=== PATIENT | female | born 1955 | race Caucasian/White ===

== ENCOUNTER → 2018-01-23 | Outpatient (CLI) | payer MEDICARE, OTHER ==
[~2018-01-23] MED LIST: ACIPHEX 20 MG T20 MG PO; ADVIL ALLERGY1 EACH PO; ADVIL CONGESTI1 EACH PO; ALLEGRA ALLERG180 MG PO; ASPIR 8181 M1 PO; ASPIR 8181 MG PO; BENAZEPRIL HCL10 MG PO; BENAZEPRIL-HCT1 EAC2 PO; CALCIUM CITRAT1 EAC9 PO; CELEBREX 200 M200 MG PO; CENTRUM SILVER1 EAC1 PO; CORRECTOL5 M1 PO; DARVOCET-N 1001 EAC1 PO; DESYREL50 MG PO; EFFEXOR XR75 MG PO; FENTANYL PATCH75 MCG TRANSDERM; GINKGO BILOBA1 EACH PO; HAIR, SKIN & N1 EAC1 PO; IMDUR 30 MG TAB30 M1 PO; L-THYROXINE; LAMICTAL100 MG PO; LEVOTHYROXIN0.112 M1 PO; LOPRESSOR25 PO; MAXZIDE-25 MG1 EACH PO; MELOXICAM15 MG PO; METOCLOPRAMIDE10 MG PO; NORCO 10-325 T1 EACH PO; PHENERGAN 25 MG25 M1 PO; PHENERGAN 25 MG25 MG PO; POTASSIUM; PRAVACHOL20 MG PO; PRAVASTATIN SOD10 MG PO; PRILOSEC40 MG PO; SIMVASTATIN40 MG PO; SKELAXIN 800 M800 M1 PO; STOOL SOFTENER1 EAC2 PO; TENORMIN25 MG PO; TESSALON PERLE100 MG PO; TRAZODONE 150150 M1 PO; TRAZODONE HCL100 MG PO; TURMERIC500 M2 PO; TYLENOL PM EX-1 EACH PO; UNICOMPLEX M TA1 TA1 PO; XANAX 0.5 MG0.5 MG PO; ZANAFLEX4 MG PO
--- NOTE | 2018-01-23 13:41 | 2DMMODE ---
[place] [address] 2 D/M-MODE ECHOCARDIOGRAM Name: NISSA WRIGHT Room: [facility]#: [id number] Admission: 01/23/18 Attend Phys: Kar Lester Discharge: Date of : 51 Date of Service: 01/23/18 1341 Report #: [id number] THIS REPORT FOR: //name// APPROVED REPORT Study performed: 01/23/2018 12:57:14 EXAM: Comprehensive 2D, Doppler, and color-flow Echocardiogram Patient Location: Out-Patient BSA: 1.69 HR: 60 bpm BP: 140/75 mmHg Other Information Study Quality: Good Indications Hypertension/HDD 2D Dimensions LVEF(%): 61.35 (>50%) IVSd: 11.74 (7-11mm) LVOT Diam: 20.94 (18-24mm) LVDd: 36.24 mm PWd: 11.07 (7-11mm) Ascending Ao: 27.75 (22-36mm) LVDs: 24.57 (25-40mm) Aortic Root: 29.53 mm Santizo's LVEF: 61.35 % Volumes Left Atrial Volume (Systole) LA ESV Index: 26.40 mL/m2 Aortic Valve AoV Peak Mandeep.: 1.30 m/s AO Peak Gr.: 6.71 mmHg LVOT Max P.95 mmHg AO Mean Gr.: 3.62 mmHg LVOT Mean P.15 mmHg LVOT Max V: 1.11 m/s AO V2 VTI: 28.92 cm LVOT Mean V: 0.67 m/s JOSÉ MIGUEL (VTI): 2.99 cm2 LVOT V1 VTI: 25.10 cm Mitral Valve E/A Ratio: 0.69 MV Decel. Time: 174.04 ms MV E Max Mandeep.: 0.56 m/[place] [address] 2 D/M-MODE ECHOCARDIOGRAM Name: NISSA WRIGHT Room: [facility]#: [id number] Admission: 01/23/18 Attend Phys: Kar Lester Discharge: Date of : 51 Date of Service: 01/23/18 1341 Report #: [id number] MV PHT: 50.47 ms MVA (PHT): 4.36 cm2 TDI E/Lateral E': 6.22 E/Medial E': 4.67 Medial E' Mandeep.: 0.12 m/s Lateral E' Mandeep.: 0.09 m/s Pulmonary Valve PV Peak Mandeep.: 0.87 m/s PV Peak Gr.: 3.01 mmHg Tricuspid Valve TR Peak Gr.: 24.46 mmHg RVSP: 29.46 mmHg Left Ventricle The left ventricle is normal size. There is normal LV segmental wall motion. Mild concentric left ventricular hypertrophy. Left ventricular systolic function is normal. The left ventricular ejection fraction is within the normal range. LVEF is 60-65%. Grade I - abnormal relaxation pattern. Right Ventricle The right ventricle is normal size. The right ventricular systolic function is normal. Atria The left atrium size is normal. The right atrium size is normal.There is a small heavily calcified relatively immobile structure in the right atrium, uncertain etiology Aortic Valve Mild aortic valve sclerosis. No aortic regurgitation is present. There is no aortic valvular stenosis. Mitral Valve The mitral valve is normal in structure. Mild mitral regurgitation. No evidence of mitral valve stenosis. Tricuspid Valve The tricuspid valve is normal in structure. Mild tricuspid regurgitation. The RVSP is __29.5 mmHg. Pulmonic Valve The pulmonary valve is normal in structure. [place] [address] 2 D/M-MODE ECHOCARDIOGRAM Name: NISSA WRIGHT Room: [facility]#: [id number] Admission: 01/23/18 Attend Phys: Kar Lester Discharge: Date of : 51 Date of Service: 01/23/18 1341 Report #: [id number] Great Vessels The aortic root is normal in size. IVC is normal in size and collapses with >50% inspiration Pericardium There is no pericardial effusion. <Conclusion> The left ventricle is normal size. Left ventricular systolic function is normal. The left ventricular ejection fraction is within the normal range. LVEF is 60-65%. Grade I - abnormal relaxation pattern. The right ventricle is normal size. The left atrium size is normal. The right atrium size is normal.There is a small heavily calcified relatively immobile structure in the right atrium, uncertain etiology Mild aortic valve sclerosis. No aortic regurgitation is present. The mitral valve is normal in structure. Mild mitral regurgitation. The tricuspid valve is normal in structure. Mild tricuspid regurgitation. The RVSP is __29.5 mmHg. IVC is normal in size and collapses with >50% inspiration There is no pericardial effusion. There is normal LV segmental wall motion. <ELECTRONICALLY SIGNED> By: Dewey Felipe MD, FACC 01/23/18 1341 1341 1341 Dewey Felipe MD, FACC /INF
== END ==
LOC: M.CRD 10:00
DX: I10 Essential (primary) hypertension (principal); I08.1 Rheumatic disorders of both mitral and tricuspid valves

== ENCOUNTER → 2018-03-27 | Outpatient (CLI) | payer MEDICARE, OTHER | LOC: M.RAD 14:10 | DX: M47.894 Other spondylosis, thoracic region (principal); M47.892 Other spondylosis, cervical region; M25.551 Pain in right hip; M25.552 Pain in left hip; I10 Essential (primary) hypertension ==

== ENCOUNTER 2018-04-28 12:04 | Inpatient (IN) | payer MEDICARE, OTHER ==
[~2018-04-28] VITALS: Ht 167.6 cm; Wt 62.6 kg
[~2018-04-28 12:04] MED LIST changes: -ADVIL ALLERGY1 EACH PO; -ALLEGRA ALLERG180 MG PO; -ASPIR 8181 MG PO; -BENAZEPRIL HCL10 MG PO; -CELEBREX 200 M200 MG PO; -HAIR, SKIN & N1 EAC1 PO; -LOPRESSOR25 PO; -PRAVACHOL20 MG PO; -TRAZODONE 150150 M1 PO; -TURMERIC500 M2 PO; -UNICOMPLEX M TA1 TA1 PO
[2018-04-28 12:06] VITALS: BP 111/63
[2018-04-28] MEDS ORDERED: TRAZODONE 150150 M1 PO (12:08)
[2018-04-28] MEDS ORDERED: MAXZIDE-25 MG1 EACH PO (12:10)
[2018-04-28] MEDS ORDERED: LOPRESSOR25 PO (12:10)
[2018-04-28] MEDS ORDERED: CELEBREX 200 M200 MG PO (12:11)
[2018-04-28] MEDS ORDERED: ALLEGRA ALLERG180 MG PO (12:12)
[2018-04-28] MEDS ORDERED: ASPIR 8181 MG PO (12:12)
[2018-04-28] MEDS ORDERED: PRAVACHOL20 MG PO (12:14)
[2018-04-28] MEDS ORDERED: TYLENOL PM EX-1 EACH PO (12:15)
[2018-04-28] MEDS ORDERED: EFFEXOR XR75 MG PO (12:15)
[2018-04-28] MEDS ORDERED: FENTANYL PATCH75 MCG TRANSDERM (12:17)
[2018-04-28] MEDS ORDERED: ADVIL ALLERGY1 EACH PO (12:17)
[2018-04-28] MEDS ORDERED: HAIR, SKIN & N1 EAC1 PO (12:18)
[2018-04-28] MEDS ORDERED: TURMERIC500 M2 PO (12:18)
[2018-04-28] MEDS ORDERED: UNICOMPLEX M TA1 TA1 PO (12:18)
[2018-04-28 12:41] LABS: ABSOLUTE EOSINOPHILS 0.1 thou/uL (0.0-0.7); ABSOLUTE LYMPHOCYTES 1.7 thou/uL (0.8-5.3); ABSOLUTE MONOCYTES 0.5 thou/uL (0.0-1.2); ABSOLUTE NEUTROPHILS 4.3 thou/uL (1.6-8.1); BASOPHILS 0.7 %; EOSINOPHILS 1.6 %; HEMATOCRIT 32.5 % (37.0-47.0); HEMOGLOBIN 10.8 gm/dL (12.0-15.0); LYMPHOCYTES 25.3 %; MCH 26.7 pg (26.0-34.0); MCHC 33.1 g/dL (28.0-37.0); MCV 80.4 fL (80.0-100.0); MONOCYTES 7.6 %; MPV 6.8 fl. (7.2-11.1); NUCLEATED RBCS 0 /100WBC; PLATELET COUNT* 281 thou/uL (150-400); POLYS 64.8 %; RBC 4.04 mil/uL (4.20-5.00); RDW-CV 13.6 % (10.5-14.5); WBC 6.6 thou/uL (4.0-11.0)
[2018-04-28 12:49] LABS: ANION GAP 11 mmol/L (7-16); APTT 30.5 Seconds (25.0-31.3); BUN 15 mg/dL (7-18); CALCIUM 9.6 mg/dL (8.5-10.1); CHLORIDE 102 mmol/L (98-107); CO2 27 mmol/L (21-32); CREATININE 0.7 mg/dL (0.6-1.3); GLUCOSE 110 mg/dL (70-99); INR 1.2; PROTIME 11.2 Seconds (9.20-11.50); SODIUM 140 mmol/L (136-145)
[2018-04-28 12:59] LABS: ALBUMIN 3.4 g/dL (3.4-5.0); ALKALINE PHOSPHATASE 97 U/L (46-116); NT-PRO BRAIN NAT PEPTIDE 231 pg/mL (<300); SGOT 14 U/L (15-37); SGPT 15 U/L (30-65); TOTAL BILIRUBIN 0.4 mg/dL (<0.1-1.0); TOTAL PROTEIN 7.4 g/dL (6.4-8.2); TROPONIN-I LEVEL <0.06 ng/mL (<0.06)
[2018-04-28 13:00] LABS: POTASSIUM 2.6 mmol/L (3.5-5.1)
[2018-04-28 13:41] LABS: URINE BILIRUBIN NEGATIVE (Negative); URINE BLOOD NEGATIVE (Negative); URINE CLARITY CLEAR; URINE COLOR YELLOW; URINE GLUCOSE-RANDOM NEGATIVE (Negative); URINE KETONES NEGATIVE (Negative); URINE LEUKOCYTES-REFLEX NEGATIVE (Negative); URINE NITRITE-REFLEX NEGATIVE (Negative); URINE PROTEIN NEGATIVE (Negative); URINE UROBILINOGEN 0.2 E.U./dl (0.2-1.0)
[2018-04-28 14:04] VITALS: BP 172/58
[2018-04-28 16:00] VITALS: BP 160/68
[2018-04-29 03:26] VITALS: BP 180/61
[2018-04-29 03:28] VITALS: BP 159/64
[2018-04-29 08:00] VITALS: BP 178/71
--- NOTE | 2018-04-29 14:44 | EKG ---
[place] [address] ELECTROCARDIOGRAM REPORT Name: NISSA WRIGHT Room: [address] IN [facility]#: [id number] Admission: 04/28/18 Attend Phys: Garrick Bonilla, Discharge: Date of : 51 Report #: [id number] THIS REPORT FOR: //name// [facility] ED Test Date: 2018-04-28 Test Time: 12:16:50 Pat Name: NISSA WRIGHT Department: Room: Gender: F Contract Recruiter: Ugo MARCUS : 1955 Requested By: Jordan eDl Rio Order Number: [id number] MD: Tk Lorenzana Measurements Intervals Michael Rate: 80 P: 59 MN: 157 QRS: -17 QRSD: 100 T: 19 QT: 411 QTc: 475 Interpretive Statements Sinus rhythm Left ventricular hypertrophy Inferior infarct, old Baseline wander in lead(s) I,II,aVR,V3,V5,V6 Compared to ECG 10/14/2016 12:21:12 No significant changes Electronically Signed On 04-29-2018 14:43:55 CDT by Tk Lorenzana [email or web address] <ELECTRONICALLY SIGNED> By: Tk Lorenzana MD, FAC 04/29/18 1443 1216 1216 Tk Lorenzana MD, [facility] /EPI
[2018-04-29 15:26] LABS: CALCIUM 8.8 mg/dL (8.5-10.1); CREATININE 0.5 mg/dL (0.6-1.3); MAGNESIUM 1.8 mg/dL (1.8-2.4); POTASSIUM 3.2 mmol/L (3.5-5.1)
[2018-04-29 17:00] VITALS: BP 152/58
[2018-04-29 23:57] VITALS: BP 182/56
[2018-04-30 08:40] VITALS: BP 172/65
[2018-04-30 15:25] LABS: AMP/METHAMP Negative (Negative); BARBITURATES Negative (Negative); BENZODIAZEPINES Negative (Negative); COCAINE Negative (Negative); METHADONE Negative (Negative); OPIATES Negative (Negative); PCP Negative (Negative); THC Negative (Negative)
[2018-04-30] MEDS ORDERED: BENAZEPRIL HCL10 MG PO (15:44)
[2018-04-30 17:41] VITALS: BP 183/66
[2018-04-30 18:57] VITALS: BP 180/75
[2018-04-30 20:15] VITALS: BP 183/71
[2018-04-30 22:15] VITALS: BP 146/55
[2018-04-30 23:47] VITALS: BP 182/79
[2018-05-01] VITALS (7 sets, daily range): BP systolic 127–191; BP diastolic 54–73
[2018-05-01 04:40] LABS: ABSOLUTE EOSINOPHILS 0.4 thou/uL (0.0-0.7); ABSOLUTE LYMPHOCYTES 3.8 thou/uL (0.8-5.3); ABSOLUTE MONOCYTES 0.8 thou/uL (0.0-1.2); ABSOLUTE NEUTROPHILS 5.3 thou/uL (1.6-8.1); BASOPHILS 0.5 %; EOSINOPHILS 3.4 %; HEMATOCRIT 35.2 % (37.0-47.0); HEMOGLOBIN 11.4 gm/dL (12.0-15.0); LYMPHOCYTES 36.7 %; MCH 26.4 pg (26.0-34.0); MCHC 32.3 g/dL (28.0-37.0); MCV 81.8 fL (80.0-100.0); MONOCYTES 8.2 %; MPV 7.1 fl. (7.2-11.1); NUCLEATED RBCS 0 /100WBC; PLATELET COUNT* 335 thou/uL (150-400); POLYS 51.2 %; RBC 4.31 mil/uL (4.20-5.00); RDW-CV 13.9 % (10.5-14.5); WBC 10.3 thou/uL (4.0-11.0)
[2018-05-01 04:41] LABS: ALBUMIN 3.4 g/dL (3.4-5.0); CALCIUM 9.5 mg/dL (8.5-10.1); CREATININE 0.5 mg/dL (0.6-1.3); POTASSIUM 3.6 mmol/L (3.5-5.1); TOTAL BILIRUBIN 0.3 mg/dL (<0.1-1.0)
[2018-05-02 01:02] VITALS: BP 174/65
[2018-05-02 04:34] VITALS: BP 151/70
[2018-05-02 04:42] LABS: ABSOLUTE EOSINOPHILS 0.3 thou/uL (0.0-0.7); ABSOLUTE LYMPHOCYTES 4.4 thou/uL (0.8-5.3); ABSOLUTE MONOCYTES 1.1 thou/uL (0.0-1.2); ABSOLUTE NEUTROPHILS 5.9 thou/uL (1.6-8.1); BASOPHILS 0.4 %; EOSINOPHILS 2.8 %; HEMATOCRIT 34.9 % (37.0-47.0); HEMOGLOBIN 11.3 gm/dL (12.0-15.0); LYMPHOCYTES 37.1 %; MCH 26.4 pg (26.0-34.0); MCHC 32.4 g/dL (28.0-37.0); MCV 81.7 fL (80.0-100.0); MONOCYTES 9.4 %; MPV 7.1 fl. (7.2-11.1); NUCLEATED RBCS 0 /100WBC; PLATELET COUNT* 328 thou/uL (150-400); POLYS 50.3 %; RBC 4.27 mil/uL (4.20-5.00); WBC 11.8 thou/uL (4.0-11.0)
[2018-05-02 05:21] LABS: ALBUMIN 3.3 g/dL (3.4-5.0); CALCIUM 9.3 mg/dL (8.5-10.1); CREATININE 0.7 mg/dL (0.6-1.3); POTASSIUM 4.2 mmol/L (3.5-5.1); TOTAL BILIRUBIN 0.3 mg/dL (<0.1-1.0); TOTAL PROTEIN 6.9 g/dL (6.4-8.2)
[2018-05-02 08:00] VITALS: BP 185/70
[2018-05-02 10:27] VITALS: BP 185/70
--- NOTE | 2018-05-03 10:21 | EKG ---
[place] [address] ELECTROCARDIOGRAM REPORT Name: NISSA WRIGHT Room: [address] IN [facility]#: [id number] Admission: 04/28/18 Attend Phys: Garrick Bonilla, Discharge: 05/02/18 Date of : 51 Report #: [id number] THIS REPORT FOR: //name// [facility] Test Date: 2018-05-01 Test Time: 08:05:54 Pat Name: NISSA WRIGHT Department: Room: [address] Gender: F Retail Services Professional: Rocco Pitts : 1955 Requested By: Garrick Bonilla Order Number: [id number] Reading MD: Galindo Gibson Measurements Intervals Paul Rate: 71 P: 52 MT: 156 QRS: -31 QRSD: 95 T: 21 QT: 454 QTc: 494 Interpretive Statements Sinus rhythm Left ventricular hypertrophy Borderline prolonged QT interval Artifact in lead(s) II,III,V1,V2,V3,V4,V5,V6 Compared to ECG 04/28/2018 12:16:50 Myocardial infarct finding no longer present Electronically Signed On 05-03-2018 10:21:33 CDT by Galindo Gibson [email or web address] <ELECTRONICALLY SIGNED> By: Galindo Gibson MD, [facility] 05/03/18 1021 08 0805 Galindo Gibson MD, [facility] /EPI
--- NOTE | 2018-05-07 09:40 | CON ---
[address] [address] CONSULTATION Name: NISSA WRIGHT Room: [address] IN M.R.#: [id number] Admission: 04/28/18 Attend Phys: Garrick Bonilla, Discharge: 05/02/18 Date of : 51 Report #: [id number] THIS REPORT FOR: //name// CC: Jakub Maguirenton Garrick Bonilla DATE OF SERVICE: 04/29/2018 HISTORY OF PRESENT ILLNESS: This is a 63-year-old female patient who was evaluated by me for muscular dystrophy and tremor. The patient gives a history that she has a longstanding history of Gqvqser-Sxiel-Xujpp disease. It runs in her family and multiple members of the family have it. She sees Dr. Islas, neurologist and is being seen and managed by Dr. Islas for her pain and spasms by multiple medications. Although they do keep the patient's symptoms relatively under control, the patient still has pretty significant symptoms even with the medication. She was admitted because she was feeling lethargic and weak and she was having some tremor and muscle spasms. Her potassium was found to be low. Her potassium was replaced and she is feeling much better. REVIEW OF SYSTEMS: Indicate that this patient has tremors and what she describes as muscle spasm and muscle weakness, which have significantly improved. She does have history of osteoporosis and rheumatoid arthritis also. I carried out 14-point review of system which was mostly noncontributory. PAST MEDICAL HISTORY: Positive for Xetpkzp-Ohoqm-Hovwc disease. FAMILY HISTORY: Positive for Zrgusfe-Blnpf-Wfwwo disease. SOCIAL HISTORY: She does not drink alcohol or smoke. PHYSICAL EXAMINATION: Indicate she is alert. She is responsive. She can follow simple commands. She feels better. Her speech is somewhat thick, but she says it is her baseline. She moves all 4 extremities. She has no reflexes in the lower extremities. Her position sense is difficult to evaluate, but looks like it is diminished on both sides. She does have some tremor, but I do not think it is because of cerebellar sign. There is no meningeal sign. There is no carotid bruit. Cardiac examinations appear noncontributory. Respiratory examinations appear also noncontributory. She has no thyroid mass. Her blood pressure is 178/71, respiration is 20, pulse is 80, temperature is 98. LABORATORY DATA: White count is normal, but her potassium is still 2.6. She did have a CT scan that was unremarkable. Her last magnesium was low at 1.7. IMPRESSION: She had underlying Lznhfob-Rbkyg-Tzrat disease for which no treatment is available. She needs to follow up with Dr. Islas after she is dismissed. Her multiple symptoms may have [place] [address] CONSULTATION Name: NISSA WRIGHT Room: [address]#: [id number] Admission: 04/28/18 Attend Phys: Garrick Bonilla, Discharge: 05/02/18 Date of : 51 Report #: [id number] imbalances, especially potassium. I will suggest checking magnesium and also check a thyroid and B12 level. I do not believe anything neurologically need to be done and she should follow up with Dr. Islas on discharge. Please call if there are any questions or if the symptoms do not resolve after correcting electrolyte imbalances, but I will suggest correcting the other imbalances also including magnesium if they are found and checking TSH and vitamin 3 probably in this patient. <ELECTRONICALLY SIGNED> By: Jurgen Villa MD 05/07/18 0940 1135 [id number] Villa MD /nt
== END 2018-05-02 11:25 | disposition home or self-care (01) | DRG 641 ==
LOC: M.ERS 12:04 → M.TBA-ER 13:19 → M.3W 13:19
PROVIDERS: Family Medicine; Internal Medicine; ADMIT Family Medicine
DX: E86.0 Dehydration (principal); E87.6 Hypokalemia; M06.9 Rheumatoid arthritis, unspecified; I10 Essential (primary) hypertension; R26.9 Unspecified abnormalities of gait and mobility; F41.9 Anxiety disorder, unspecified; R25.1 Tremor, unspecified; R52 Pain, unspecified; G60.0 Hereditary motor and sensory neuropathy; M81.0 Age-related osteoporosis without current pathological fracture; E78.5 Hyperlipidemia, unspecified; Z90.710 Acquired absence of both cervix and uterus; Z79.82 Long term (current) use of aspirin; Z79.899 Other long term (current) drug therapy; Z88.5 Allergy status to narcotic agent; Z88.8 Allergy status to other drugs, medicaments and biological substances; Z84.89 Family history of other specified conditions

== ENCOUNTER → 2018-06-21 | Outpatient (CLI) | payer MEDICARE, OTHER ==
[~2018-06-21] MED LIST changes: +ADVIL ALLERGY1 EACH PO; +ALLEGRA ALLERG180 MG PO; +ASPIR 8181 MG PO; +BENAZEPRIL HCL10 MG PO; +CELEBREX 200 M200 MG PO; +HAIR, SKIN & N1 EAC1 PO; +LOPRESSOR25 PO; +PRAVACHOL20 MG PO; +TRAZODONE 150150 M1 PO; +TURMERIC500 M2 PO; +UNICOMPLEX M TA1 TA1 PO
== END ==
LOC: M.ULTRA 13:06
DX: M79.89 Other specified soft tissue disorders (principal); M25.511 Pain in right shoulder; I10 Essential (primary) hypertension; M81.0 Age-related osteoporosis without current pathological fracture; E78.5 Hyperlipidemia, unspecified; M06.9 Rheumatoid arthritis, unspecified; W19.XXXA Unspecified fall, initial encounter

== ENCOUNTER → 2019-01-16 | Outpatient (CLI) | payer MEDICARE, OTHER ==
--- NOTE | 2019-01-16 16:01 | 2DMMODE ---
[place] [address] 2 D/M-MODE ECHOCARDIOGRAM Name: BONNIE WRIGHTMIGUEL ÁNGEL Palacio Room: [facility]#: [id number] Admission: 01/16/19 Attend Phys: Kar Lester Discharge: Date of : 51 Date of Service: 01/16/19 1601 Report #: [id number] THIS REPORT FOR: //name// APPROVED REPORT Study performed: 01/16/2019 11:03:35 EXAM: Comprehensive 2D, Doppler, and color-flow Echocardiogram Patient Location: Out-Patient BSA: 1.72 HR: 65 bpm BP: 140/75 mmHg Other Information Study Quality: Good Indications Hypertension/HDD 2D Dimensions IVSd: 12.55 (7-11mm) LVOT Diam: 20.44 (18-24mm) LVDd: 43.47 mm PWd: 10.73 (7-11mm) Ascending Ao: 29.77 (22-36mm) LVDs: 23.62 (25-40mm) Aortic Root: 27.67 mm Volumes Left Atrial Volume (Systole) LA ESV Index: 28.00 mL/m2 Aortic Valve AoV Peak Mandeep.: 1.32 m/s AO Peak Gr.: 6.97 mmHg LVOT Max P.93 mmHg AO Mean Gr.: 3.59 mmHg LVOT Mean P.69 mmHg LVOT Max V: 0.86 m/s AO V2 VTI: 28.75 cm LVOT Mean V: 0.61 m/s JOSÉ MIGUEL (VTI): 2.76 cm2 LVOT V1 VTI: 24.15 cm Mitral Valve E/A Ratio: 0.73 MV Decel. Time: 292.14 ms MV E Max Mandeep.: 0.68 m/s MV PHT: 84.72 ms MVA (PHT): 2.60 cm2 [place] [address] 2 D/M-MODE ECHOCARDIOGRAM Name: NISSA WRIGTH Room: [facility]#: [id number] Admission: 01/16/19 Attend Phys: Kar Lester Discharge: Date of : 51 Date of Service: 01/16/19 1601 Report #: [id number] TDI E/Lateral E': 8.50 E/Medial E': 9.71 Medial E' Mandeep.: 0.07 m/s Lateral E' Mandeep.: 0.08 m/s Pulmonary Valve PV Peak Mandeep.: 1.08 m/s PV Peak Gr.: 4.68 mmHg Tricuspid Valve RAP Estimate: 5.00 mmHg TR Peak Gr.: 26.77 mmHg RVSP: 31.77 mmHg PA Pressure: 31.77 mmHg Left Ventricle The left ventricle is normal size. There is normal LV segmental wall motion. Mild concentric left ventricular hypertrophy. Left ventricular systolic function is normal. The left ventricular ejection fraction is within the normal range. LVEF is 60-65%. Grade I - abnormal relaxation pattern. Right Ventricle The right ventricle is normal size. The right ventricular systolic function is normal. Atria The left atrium size is normal. The right atrium size is normal.There is a calcified vestigial structure noted . Aortic Valve The aortic valve is normal in structure. No aortic regurgitation is present. There is no aortic valvular stenosis. Mitral Valve The mitral valve is normal in structure. Mild mitral regurgitation. No evidence of mitral valve stenosis. Tricuspid Valve The tricuspid valve is normal in structure. Mild tricuspid regurgitation. Pulmonic Valve The pulmonary valve is normal in structure. Mild pulmonic regurgitation[place] [address] 2 D/M-MODE ECHOCARDIOGRAM Name: NISSA WRIGHT Room: [facility]#: [id number] Admission: 01/16/19 Attend Phys: Kar Lester Discharge: Date of : 51 Date of Service: 01/16/19 1601 Report #: [id number] The aortic root is normal in size. IVC is normal in size and collapses >50% with inspiration. Pericardium There is no pericardial effusion. <Conclusion> The left ventricle is normal size. Mild concentric left ventricular hypertrophy. Left ventricular systolic function is normal. The left ventricular ejection fraction is within the normal range. LVEF is 60-65%. Grade I - abnormal relaxation pattern. The right ventricle is normal size. The left atrium size is normal. The right atrium size is normal.There is a calcified vestigial structure noted . The aortic valve is normal in structure. The mitral valve is normal in structure. Mild mitral regurgitation. The tricuspid valve is normal in structure. Mild tricuspid regurgitation. IVC is normal in size and collapses >50% with inspiration. There is no pericardial effusion. There is normal LV segmental wall motion. <ELECTRONICALLY SIGNED> By: Dewey Felipe MD, FACC 01/16/19 1601 160 160 Dewey Felipe MD, FACC /INF
== END ==
LOC: M.CRD 10:56
DX: I08.1 Rheumatic disorders of both mitral and tricuspid valves (principal); I10 Essential (primary) hypertension; I95.1 Orthostatic hypotension

== ENCOUNTER → 2020-03-20 | Outpatient (CLI) | payer MEDICARE, OTHER ==
[2020-03-20 12:09] LABS: ABSOLUTE EOSINOPHILS 0.1 thou/uL (0.0-0.7); ABSOLUTE LYMPHOCYTES 2.4 thou/uL (0.8-5.3); ABSOLUTE MONOCYTES 0.5 thou/uL (0.0-1.2); ABSOLUTE NEUTROPHILS 3.7 thou/uL (1.6-8.1); BASOPHILS 0.4 %; EOSINOPHILS 1.8 %; HEMATOCRIT 38.9 % (37.0-47.0); LYMPHOCYTES 35.6 %; MCH 29.6 pg (26.0-34.0); MCHC 33.4 g/dL (28.0-37.0); MCV 88.6 fL (80.0-100.0); MONOCYTES 7.5 %; MPV 7.3 fl. (7.2-11.1); NUCLEATED RBCS 0 /100WBC; PLATELET COUNT* 214 thou/uL (150-400); POLYS 54.7 %; RBC 4.39 mil/uL (4.20-5.00); RDW-CV 13.3 % (10.5-14.5); WBC 6.7 thou/uL (4.0-11.0)
[2020-03-20 12:18] LABS: ALBUMIN 3.7 g/dL (3.4-5.0); CALCIUM 8.8 mg/dL (8.5-10.1); CREATININE 0.7 mg/dL (0.6-1.3); POTASSIUM 3.4 mmol/L (3.5-5.1); TOTAL BILIRUBIN 0.2 mg/dL (<0.1-1.0); TOTAL PROTEIN 7.2 g/dL (6.4-8.2)
== END ==
LOC: M.LAB 11:46
PROVIDERS: Registered Nurse
DX: I95.1 Orthostatic hypotension (principal); I10 Essential (primary) hypertension

== ENCOUNTER → 2020-05-26 | Outpatient (CLI) | payer MEDICARE, OTHER | LOC: M.RAD 14:25 | PROVIDERS: ATTEND Nurse Practitioner Family | DX: M79.89 Other specified soft tissue disorders (principal) ==

== ENCOUNTER → 2020-06-02 | Outpatient (CLI) | payer MEDICARE, OTHER | LOC: M.MRI 08:30 | PROVIDERS: ATTEND Nurse Practitioner Family | DX: S60.211A Contusion of right wrist, initial encounter (principal); X58.XXXA Exposure to other specified factors, initial encounter; Y93.89 Activity, other specified; Y92.89 Other specified places as the place of occurrence of the external cause; Y99.8 Other external cause status ==

== ENCOUNTER 2020-08-12 18:28 | Emergency (ER) | payer MEDICARE, OTHER ==
[~2020-08-12] VITALS: Ht 157.5 cm; Wt 65.8 kg
[2020-08-12] MEDS ORDERED: NEURONTIN100 MG PO (18:52)
[2020-08-12] MEDS ORDERED: TENORMIN25 MG PO (18:53)
[2020-08-12] MEDS ORDERED: KLOR-CON M2020 MEQ PO (18:53)
[2020-08-12] MEDS ORDERED: FAMOTIDINE 40 M40 M1 PO (18:53)
[2020-08-12] MEDS ORDERED: NORVASC 2.5 MG2.5 M1 PO (18:54)
[2020-08-12] MEDS ORDERED: CYMBALTA60 MG PO (18:54)
[2020-08-12] MEDS ORDERED: DURAGESIC1 EAC3 TRANSDERM (18:56)
[2020-08-12] MEDS ORDERED: THC GUMMY PO (18:59)
[2020-08-12] MEDS ORDERED: LORCET 5-325 M1 EACH PO (19:00)
[2020-08-12 19:15] LABS: ABSOLUTE EOSINOPHILS 0.1 thou/uL (0.0-0.7); ABSOLUTE LYMPHOCYTES 2.4 thou/uL (0.8-5.3); ABSOLUTE MONOCYTES 0.6 thou/uL (0.0-1.2); BASOPHILS 0.5 %; EOSINOPHILS 1.3 %; HEMATOCRIT 36.9 % (37.0-47.0); HEMOGLOBIN 12.7 gm/dL (12.0-15.0); LYMPHOCYTES 29.3 %; MCH 30.5 pg (26.0-34.0); MCHC 34.4 g/dL (28.0-37.0); MCV 88.5 fL (80.0-100.0); MONOCYTES 7.7 %; MPV 6.1 fl. (7.2-11.1); NUCLEATED RBCS 0 /100WBC; PLATELET COUNT* 256 thou/uL (150-400); POLYS 61.2 %; RBC 4.17 mil/uL (4.20-5.00); RDW-CV 12.4 % (10.5-14.5); WBC 8.2 thou/uL (4.0-11.0)
[2020-08-12 19:34] LABS: CALCIUM 9.5 mg/dL (8.5-10.1); CREATININE 0.9 mg/dL (0.6-1.3)
[2020-08-12 19:39] LABS: ALBUMIN 3.9 g/dL (3.4-5.0); TOTAL BILIRUBIN 0.3 mg/dL (<0.1-1.0); TOTAL PROTEIN 7.3 g/dL (6.4-8.2)
[2020-08-12 21:26] VITALS: BP 160/71
--- NOTE | 2020-08-13 09:16 | EKG ---
[place] [address] ELECTROCARDIOGRAM REPORT Name: ADRIANANISSA Palacio Room: [facility]#: [id number] Admission: 08/12/20 Attend Phys: Discharge: 08/12/20 Date of : 51 Date of Service: 08/12/201945 Report #: [id number] THIS REPORT FOR: //name// [facility] ED Test Date: 2020-08-12 Test Time: 19:46:38 Pat Name: NISSA WRIGHT Department: Room: Gender: Mold Preparer: ROLAND : 1955 Requested By: Heydi Fuentes Order Number: [id number] MD: Tank Boo Measurements Intervals [place] Rate: 74 P: 59 WI: 163 QRS: -21 QRSD: 97 T: 30 QT: 424 QTc: 471 Interpretive Statements Sinus rhythm Left ventricular hypertrophy Inferior infarct, old Compared to ECG 05/01/2018 08:05:54 no change Electronically Signed On 08-13-2020 9:15:57 CDT by Tank Boo [email or web address] <ELECTRONICALLY SIGNED> By: Tank Boo MD, FAC 08/13/20 0915 45 45 Tank Boo MD, [facility] /EPI
== END 2020-08-12 21:26 | disposition home or self-care (01) ==
LOC: M.ERS 18:28
PROVIDERS: Nurse Practitioner Family
DX: M54.6 Pain in thoracic spine (principal); R51.9 Headache, unspecified; M62.838 Other muscle spasm; I10 Essential (primary) hypertension; E78.5 Hyperlipidemia, unspecified; M19.90 Unspecified osteoarthritis, unspecified site; Z90.710 Acquired absence of both cervix and uterus; Z87.820 Personal history of traumatic brain injury; Z88.5 Allergy status to narcotic agent; Z88.8 Allergy status to other drugs, medicaments and biological substances

== ENCOUNTER → 2020-10-01 | Outpatient (CLI) | payer MEDICARE, OTHER ==
[~2020-10-01] MED LIST changes: +CYMBALTA60 MG PO; +DURAGESIC1 EAC3 TRANSDERM; +FAMOTIDINE 40 M40 M1 PO; +KLOR-CON M2020 MEQ PO; +LORCET 5-325 M1 EACH PO; +NEURONTIN100 MG PO; +NORVASC 2.5 MG2.5 M1 PO; +THC GUMMY PO; +XANAX 0.25 MG0.25 MG PO; -XANAX 0.5 MG0.5 MG PO
== END ==
LOC: M.PC 10:45
PROVIDERS: ATTEND Anesthesiology Pain Medicine
DX: G71.00 Muscular dystrophy, unspecified (principal); M54.2 Cervicalgia; M06.9 Rheumatoid arthritis, unspecified; M19.90 Unspecified osteoarthritis, unspecified site; I10 Essential (primary) hypertension; M81.0 Age-related osteoporosis without current pathological fracture; F11.20 Opioid dependence, uncomplicated; F41.8 Other specified anxiety disorders; K21.9 Gastro-esophageal reflux disease without esophagitis; K58.9 Irritable bowel syndrome, unspecified; Z88.8 Allergy status to other drugs, medicaments and biological substances; Z79.899 Other long term (current) drug therapy

== ENCOUNTER 2020-11-18 18:55 | Inpatient (IN) | payer MEDICARE, OTHER ==
[~2020-11-18] VITALS: Ht 165.1 cm; Wt 69.8 kg
--- NOTE | ~2020-11-18 | CON ---
[address] [address] CONSULTATION Name: NISSA WRIGHT Room: [address] IN .R.#: [id number] Admission: 11/18/20 Attend Phys: Hari Luis MD Discharge: Date of : 51 Report #: [id number] THIS REPORT FOR: cc: Jakub Armijo Russell J. DO ~ Jurgen Perla MD DATE OF SERVICE: 11/19/2020 HISTORY OF PRESENT ILLNESS: This is a 65-year-old female patient who indicates that she follows up at [facility] for muscular dystrophy. When further history is taken, she said she has been diagnosed with Yuwfxlo-Dkxmx-Qbpbt disease. When I asked her when was the last time she followed up with the [facility]. She does not even remember when she was there. She says she has a strong family history of Jxrkrxj-Kwrrq-Iidui disease. Multiple members in the family have suffered from that. She also has pain problem. She saw a appliance painter and refinisher few months ago and he told her that there is nothing he can do about it. She does complain of back pain, which is chronic. It is in the thoracic and the lumbar spine area, but she tells me that she never had any MRI in that location. She apparently has a history of rheumatoid arthritis and osteoporosis. She is on numerous medications including ____. She does have a history of hypertension. She takes muscle spasm medication. She complained of headaches and decreased appetite, abdominal pain to the Emergency Room physician, but to me her main complaint was pain in the leg as well as in the back. She has some trouble emptying her bladder. She does not appear to have any visual, ENT, cardiac, respiratory, constitutional, dermatological, hematological, psychiatric, throat, allergic symptom associated with present symptomatology. PAST MEDICAL HISTORY: Positive for Nctkysy-Vmciq-Hbmxx disease. FAMILY HISTORY: Positive for Zzpoelh-Faesr-Ridia disease. SOCIAL HISTORY: She does not drink alcohol. PHYSICAL EXAMINATION: She is alert. She is responsive. She can follow simple commands. Her speech, concentration, fund of knowledge and memory is at her baseline. Cranial nerve examination 2-12 does not look like it is unremarkable. She does have weakness in the upper and lower extremity, which she says is her baseline. She does not have any position sense there. It appears reflexes may be there in the knee jerk. Her tone looks symmetrical. I cannot tell about plantar. She does not appear to be ataxic. There is no meningeal sign. I did not make her walk. She is moderately built individual. She does not have any dysmorphic features of eyes, ears, and face. Vision and hearing looks adequate. Pulses are palpable. Blood pressure is 129/73, respirations 16, pulse is 85, [place] [address] CONSULTATION Name: NISSA WRIGHT Room: [address] IN ..#: [id number] Admission: 11/18/20 Attend Phys: Hari Luis MD Discharge: Date of : 51 Report #: [id number] temperature is 97.1. LABORATORY DATA: Her white count is 9.2. GFR is 55. IMPRESSION: She does have Whwaags-Bjspk-Rjtbc disease, but the present problem appeared to be coming from the spine is a longstanding process. I will suggest working up the spine. I will recommend doing MRI of the thoracic and lumbar spine and then talk to one of the spine physician or pain management to see what can be done. I do not think anything can be done about Kxlsjht-Ceygq-Phrii disease and therefore that she needs to follow up with [facility] because such patients are followed up there, but I will suggest working up the spine, but will defer that to you. Thank you very much for this referral. Please call me if there is any question. Otherwise, I do not plan to follow up. By: 18 44Jurgen Perla MD /antionette
[~2020-11-18 18:55] MED LIST changes: +OMEPRAZOLE20 M1 PO; -PRILOSEC40 MG PO
[2020-11-18 19:41] VITALS: BP 103/58
[2020-11-18 19:47] LABS: ABSOLUTE EOSINOPHILS 0.2 thou/uL (0.0-0.7); ABSOLUTE MONOCYTES 0.7 thou/uL (0.0-1.2); ABSOLUTE NEUTROPHILS 5.2 thou/uL (1.6-8.1); BASOPHILS 0.4 %; EOSINOPHILS 2.4 %; HEMATOCRIT 38.5 % (37.0-47.0); HEMOGLOBIN 12.9 gm/dL (12.0-15.0); LYMPHOCYTES 32.5 %; MCHC 33.5 g/dL (28.0-37.0); MCV 89.8 fL (80.0-100.0); MONOCYTES 7.8 %; MPV 6.7 fl. (7.2-11.1); NUCLEATED RBCS 0 /100WBC; PLATELET COUNT* 222 thou/uL (150-400); POLYS 56.9 %; RBC 4.29 mil/uL (4.20-5.00); WBC 9.2 thou/uL (4.0-11.0)
[2020-11-18 19:53] LABS: POTASSIUM 4.1 mmol/L (3.5-5.1)
[2020-11-18 19:58] LABS: ALBUMIN 3.8 g/dL (3.4-5.0); TOTAL BILIRUBIN 0.3 mg/dL (<0.1-1.0); TOTAL PROTEIN 7.2 g/dL (6.4-8.2)
[2020-11-18 21:19] LABS: URINE BILIRUBIN NEGATIVE (Negative); URINE BLOOD TRACE (Negative); URINE CLARITY CLEAR; URINE COLOR YELLOW; URINE GLUCOSE-RANDOM NEGATIVE (Negative); URINE KETONES NEGATIVE (Negative); URINE LEUKOCYTES-REFLEX 1+ (Negative); URINE NITRITE-REFLEX NEGATIVE (Negative); URINE PROTEIN NEGATIVE (Negative); URINE SPECIFIC GRAVITY 1.015 (1.005-1.030)
[2020-11-18 21:27] LABS: BACTERIA-REFLEX >30 Many /HPF (None Seen); CRYSTALS None Seen /LPF (None Seen); FINE GRANULAR CASTS 0-3 Few /LPF (None Seen); HYALINE CASTS 0-3 Few /LPF (None Seen); MUCUS 4-6 Moderate strn/LPF (None Seen); RENAL EPITHELIAL CELLS 0-3 Few /LPF (None Seen); SQUAMOUS 4-10 Moderate /LPF (0-3); TRANSITIONAL EPITHEL CELL 0-3 Few /LPF (None Seen); WBC CLUMPS Moderate (None Seen)
[2020-11-19 02:18] VITALS: BP 136/58
[2020-11-19 02:35] VITALS: BP 135/54
[2020-11-19 11:31] VITALS: BP 182/52
[2020-11-19 17:27] VITALS: BP 129/73
[2020-11-19 21:00] VITALS: BP 168/66
[2020-11-20 04:50] LABS: ABSOLUTE EOSINOPHILS 0.2 thou/uL (0.0-0.7); ABSOLUTE LYMPHOCYTES 3.4 thou/uL (0.8-5.3); ABSOLUTE MONOCYTES 0.8 thou/uL (0.0-1.2); ABSOLUTE NEUTROPHILS 3.6 thou/uL (1.6-8.1); BASOPHILS 0.5 %; EOSINOPHILS 2.3 %; HEMATOCRIT 35.7 % (37.0-47.0); HEMOGLOBIN 12.1 gm/dL (12.0-15.0); LYMPHOCYTES 42.5 %; MCH 30.2 pg (26.0-34.0); MCHC 33.8 g/dL (28.0-37.0); MCV 89.2 fL (80.0-100.0); MONOCYTES 9.5 %; MPV 6.9 fl. (7.2-11.1); NUCLEATED RBCS 0 /100WBC; PLATELET COUNT* 188 thou/uL (150-400); POLYS 45.2 %; RDW-CV 12.7 % (10.5-14.5); WBC 7.9 thou/uL (4.0-11.0)
[2020-11-20 05:07] LABS: CALCIUM 9.2 mg/dL (8.5-10.1); POTASSIUM 3.9 mmol/L (3.5-5.1)
[2020-11-20 07:45] VITALS: BP 133/52
[2020-11-20] MEDS ORDERED: CEFDINIR300 MG PO (10:13)
[2020-11-20 10:24] VITALS: BP 133/52
[2020-11-20 11:52] VITALS: BP 133/52
== END 2020-11-20 11:45 | disposition home or self-care (01) | DRG 689 ==
LOC: M.ERS 18:55 → M.TBA-ER 22:19 → M.2W 22:19
PROVIDERS: Emergency Medicine; Internal Medicine; ADMIT Internal Medicine; ATTEND Internal Medicine
DX: N30.00 Acute cystitis without hematuria (principal); G92 Toxic encephalopathy; Z20.822 Contact with and (suspected) exposure to COVID-19; M06.9 Rheumatoid arthritis, unspecified; I10 Essential (primary) hypertension; M81.0 Age-related osteoporosis without current pathological fracture; E78.5 Hyperlipidemia, unspecified; G60.0 Hereditary motor and sensory neuropathy; G89.29 Other chronic pain; M19.90 Unspecified osteoarthritis, unspecified site; T50.905A Adverse effect of unspecified drugs, medicaments and biological substances, initial encounter; Y92.89 Other specified places as the place of occurrence of the external cause; Z90.710 Acquired absence of both cervix and uterus; Z88.6 Allergy status to analgesic agent; Z88.8 Allergy status to other drugs, medicaments and biological substances; Z84.89 Family history of other specified conditions; Z79.899 Other long term (current) drug therapy

== ENCOUNTER 2020-12-21 11:22 | Emergency (ER) | payer MEDICARE, OTHER ==
[~2020-12-21] VITALS: Ht 165.1 cm; Wt 68.0 kg
[~2020-12-21 11:22] MED LIST changes: +CEFDINIR300 MG PO
[2020-12-21] MEDS ORDERED: FUROSEMIDE 20 M20 MG PO (12:26)
[2020-12-21 13:22] LABS: ABSOLUTE EOSINOPHILS 0.2 thou/uL (0.0-0.7); ABSOLUTE LYMPHOCYTES 2.7 thou/uL (0.8-5.3); ABSOLUTE MONOCYTES 0.5 thou/uL (0.0-1.2); ABSOLUTE NEUTROPHILS 4.9 thou/uL (1.6-8.1); BASOPHILS 0.5 %; EOSINOPHILS 2.2 %; HEMATOCRIT 36.5 % (37.0-47.0); HEMOGLOBIN 12.1 gm/dL (12.0-15.0); LYMPHOCYTES 32.6 %; MCH 29.6 pg (26.0-34.0); MCHC 33.2 g/dL (28.0-37.0); MCV 89.1 fL (80.0-100.0); MONOCYTES 6.3 %; MPV 6.7 fl. (7.2-11.1); NUCLEATED RBCS 0 /100WBC; PLATELET COUNT* 244 thou/uL (150-400); POLYS 58.4 %; RBC 4.09 mil/uL (4.20-5.00); RDW-CV 12.6 % (10.5-14.5); WBC 8.4 thou/uL (4.0-11.0)
[2020-12-21 13:34] LABS: CALCIUM 9.5 mg/dL (8.5-10.1); CREATININE 0.7 mg/dL (0.6-1.3); POTASSIUM 3.5 mmol/L (3.5-5.1)
[2020-12-21 13:40] LABS: ALBUMIN 3.9 g/dL (3.4-5.0); TOTAL BILIRUBIN 0.3 mg/dL (<0.1-1.0); TOTAL PROTEIN 7.7 g/dL (6.4-8.2)
--- NOTE | 2020-12-21 14:04 | EKG ---
[place] [address] ELECTROCARDIOGRAM REPORT Name: ADRIANANISSA S Room: [facility]#: [id number] Admission: 12/21/20 Attend Phys: Discharge: Date of : 51 Date of Service: 12/21/20 1156 Report #: [id number] THIS REPORT FOR: //name// [facility] ED Test Date: 2020-12-21 Test Time: 11:56:04 Pat Name: NISSA WRIGHT Department: Room: Gender: Technical Specialist Cytology: : 1955 Requested By: Heydi Fuentes Order Number: [id number] MD: Dewey Felipe Measurements Intervals [place] Rate: 57 P: 54 PA: 187 QRS: -22 QRSD: 99 T: 21 QT: 463 QTc: 451 Interpretive Statements Sinus rhythm Left ventricular hypertrophy Inferior infarct, old Baseline wander in lead(s) V6 Compared to ECG 08/12/2020 19:46:38 No significant changes Electronically Signed On 12-21-2020 14:03:52 CORE CUTTER AND REAMER by Dewey eFlipe [email or web address] <ELECTRONICALLY SIGNED> By: Dewey Felipe MD, FACC 12/21/20 1403 1156 1156 Dewey Felipe MD, [facility] /EPI
[2020-12-21] MEDS ORDERED: ZOFRAN ODT4 MG PO (14:43)
[2020-12-21] MEDS ORDERED: COMPRESSION TH1 EACH MISCELL (14:44)
[2020-12-21 15:02] VITALS: BP 167/69
== END 2020-12-21 15:03 | disposition home or self-care (01) ==
LOC: M.ERS 11:22
PROVIDERS: Nurse Practitioner Family
DX: S40.022A Contusion of left upper arm, initial encounter (principal); R60.0 Localized edema; G89.29 Other chronic pain; M54.5 Low back pain; M25.571 Pain in right ankle and joints of right foot; M25.531 Pain in right wrist; E78.5 Hyperlipidemia, unspecified; M06.9 Rheumatoid arthritis, unspecified; I10 Essential (primary) hypertension; Z90.710 Acquired absence of both cervix and uterus; Z88.5 Allergy status to narcotic agent; Z88.8 Allergy status to other drugs, medicaments and biological substances; W18.39XA Other fall on same level, initial encounter; Y93.89 Activity, other specified; Y92.89 Other specified places as the place of occurrence of the external cause; Y99.8 Other external cause status

== ENCOUNTER 2021-09-13 18:45 | Inpatient (IN) | payer MEDICARE, OTHER ==
[~2021-09-13] VITALS: Ht 165.1 cm; Wt 68.0 kg
[~2021-09-13 18:45] MED LIST changes: +COMPRESSION TH1 EACH MISCELL; +FUROSEMIDE 20 M20 MG PO; +ZOFRAN ODT4 MG PO
[2021-09-13 18:49] VITALS: BP 141/63
[2021-09-13] MEDS ORDERED: WELLBUTRIN SR150 MG PO (18:55)
[2021-09-13 20:13] LABS: ACETAMINOPHEN 9 ug/mL (10-30); SALICYLATE < 2.8 mg/dL (2.8-20.0)
[2021-09-13 20:14] LABS: ALCOHOL < 10 mg/dL (<10)
[2021-09-13 20:20] LABS: URINE BILIRUBIN NEGATIVE (Negative); URINE BLOOD NEGATIVE (Negative); URINE CLARITY CLEAR; URINE COLOR YELLOW; URINE GLUCOSE-RANDOM NEGATIVE (Negative); URINE KETONES NEGATIVE (Negative); URINE NITRITE-REFLEX NEGATIVE (Negative); URINE PROTEIN NEGATIVE (Negative); URINE UROBILINOGEN 0.2 E.U./dl (0.2-1.0)
[2021-09-13 20:22] LABS: AMP/METHAMP Negative (Negative); BARBITURATES Negative (Negative); BENZODIAZEPINES POSITIVE (Negative); COCAINE Negative (Negative); METHADONE Negative (Negative); OPIATES POSITIVE (Negative); PCP Negative (Negative); THC POSITIVE (Negative)
[2021-09-13 20:23] LABS: URINE LEUKOCYTES-REFLEX 2+ (Negative)
[2021-09-13 20:30] LABS: ABSOLUTE EOSINOPHILS 0.2 thou/uL (0.0-0.7); ABSOLUTE LYMPHOCYTES 2.4 thou/uL (0.8-5.3); ABSOLUTE MONOCYTES 0.9 thou/uL (0.0-1.2); ABSOLUTE NEUTROPHILS 7.2 thou/uL (1.6-8.1); BASOPHILS 0.2 %; EOSINOPHILS 2.3 %; HEMATOCRIT 36.8 % (37.0-47.0); LYMPHOCYTES 22.2 %; MCH 29.6 pg (26.0-34.0); MCHC 32.5 g/dL (28.0-37.0); MCV 90.9 fL (80.0-100.0); MPV 7.1 fl. (7.2-11.1); NUCLEATED RBCS 0 /100WBC; PLATELET COUNT* 252 thou/uL (150-400); POLYS 67.3 %; RBC 4.05 mil/uL (4.20-5.00); RDW-CV 13.1 % (10.5-14.5); WBC 10.7 thou/uL (4.0-11.0)
[2021-09-13 20:35] LABS: CRYSTALS None Seen /LPF (None Seen); MUCUS None Seen strn/LPF (None Seen); SQUAMOUS >10 Many /LPF (0-3)
[2021-09-13 20:37] LABS: HYALINE CASTS 0-3 Few /LPF (None Seen); URINE RBC None Seen /HPF (0-2)
[2021-09-13 20:38] LABS: BACTERIA-REFLEX 1-9 Few /HPF (None Seen)
[2021-09-13 20:40] LABS: NT-PRO BRAIN NAT PEPTIDE 78 pg/mL (<300)
[2021-09-13 20:44] LABS: CREATININE 1.3 mg/dL (0.6-1.3); POTASSIUM 4.8 mmol/L (3.5-5.1)
[2021-09-13 20:49] LABS: ALBUMIN 3.3 g/dL (3.4-5.0); TOTAL BILIRUBIN 0.2 mg/dL (<0.1-1.0); TOTAL PROTEIN 6.2 g/dL (6.4-8.2)
[2021-09-14 01:14] VITALS: BP 133/60
[2021-09-14 04:04] VITALS: BP 138/66
[2021-09-14 08:00] VITALS: BP 162/72
--- NOTE | 2021-09-14 08:53 | EKG ---
[place] [address] ELECTROCARDIOGRAM REPORT Name: NISSA WRIGHT Room: [place] [address] ADM IN [facility]#: [id number] Admission: 09/13/21 Attend Phys: Emmanuelle Kebede, Discharge: Date of : 51 Date of Service: 09/13/211913 Report #: [id number] THIS REPORT FOR: //name// [facility] ED Test Date: 2021-09-13 Test Time: 19:14:14 Pat Name: NISSA WRIGHT Department: Room: [facility] Gender: F Medical Assisting Program Director: MA : 1955 Requested By: Heydi Fuentes Order Number: [id number] MD: Tk Lorenzana Measurements Intervals [place] Rate: 55 P: 51 MI: 193 QRS: -16 QRSD: 97 T: 15 QT: 441 QTc: 422 Interpretive Statements Sinus rhythm Left ventricular hypertrophy, by voltage Inferior infarct, old, possible Compared to ECG 12/21/2020 11:56:04 No significant changes Electronically Signed On 09-14-2021 8:53:23 LEATHER STAKER by Tk Lorenzana [email or web address] <ELECTRONICALLY SIGNED> By: Tk Lorenzana MD, FACC 09/14/21 0853 13 13 Tk Lorenzana MD, FAC /EPI
[2021-09-14 12:00] VITALS: BP 148/59
[2021-09-14 15:53] VITALS: BP 153/48
[2021-09-14] MEDS ORDERED: CEFDINIR300 MG PO (16:20)
[2021-09-14 19:46] VITALS: BP 169/85
== END 2021-09-14 19:47 | disposition home or self-care (01) | DRG 640 ==
LOC: M.ERS 18:45 → M.TBA-ER 20:56
PROVIDERS: Nurse Practitioner Family; ADMIT Internal Medicine; ATTEND Internal Medicine
DX: E86.0 Dehydration (principal); G92.8 Other toxic encephalopathy; N30.00 Acute cystitis without hematuria; F41.9 Anxiety disorder, unspecified; F32.A Depression, unspecified; Z88.8 Allergy status to other drugs, medicaments and biological substances; Z90.710 Acquired absence of both cervix and uterus; T43.295A Adverse effect of other antidepressants, initial encounter; Z20.822 Contact with and (suspected) exposure to COVID-19

== ENCOUNTER 2021-11-27 14:22 | Inpatient (IN) | payer MEDICARE, OTHER ==
[~2021-11-27] VITALS: Ht 165.1 cm; Wt 62.9 kg
[~2021-11-27 14:22] MED LIST changes: +WELLBUTRIN SR150 MG PO
[2021-11-27 14:29] VITALS: BP 138/56
[2021-11-27 15:57] LABS: ABSOLUTE EOSINOPHILS 0.2 thou/uL (0.0-0.7); ABSOLUTE LYMPHOCYTES 1.7 thou/uL (0.8-5.3); ABSOLUTE MONOCYTES 0.7 thou/uL (0.0-1.2); BASOPHILS 0.5 %; EOSINOPHILS 2.8 %; HEMATOCRIT 34.8 % (37.0-47.0); HEMOGLOBIN 11.7 gm/dL (12.0-15.0); LYMPHOCYTES 26.3 %; MCH 30.4 pg (26.0-34.0); MCHC 33.7 g/dL (28.0-37.0); MCV 90.1 fL (80.0-100.0); MONOCYTES 10.2 %; MPV 6.6 fl. (7.2-11.1); NUCLEATED RBCS 0 /100WBC; PLATELET COUNT* 198 thou/uL (150-400); POLYS 60.2 %; RBC 3.86 mil/uL (4.20-5.00); RDW-CV 13.8 % (10.5-14.5); WBC 6.6 thou/uL (4.0-11.0)
[2021-11-27 16:02] LABS: CALCIUM 8.5 mg/dL (8.5-10.1); POTASSIUM 3.4 mmol/L (3.5-5.1)
[2021-11-27 16:06] LABS: ALBUMIN 3.4 g/dL (3.4-5.0); MAGNESIUM 2.1 mg/dL (1.8-2.4); TOTAL BILIRUBIN 0.3 mg/dL (<0.1-1.0); TOTAL PROTEIN 6.7 g/dL (6.4-8.2)
[2021-11-27 18:54] VITALS: BP 162/72
[2021-11-27 20:00] VITALS: BP 132/58
[2021-11-27 22:53] LABS: APTT 32.6 Seconds (25.0-31.3); PROTIME 10.6 Seconds (9.20-11.50)
[2021-11-28] VITALS: BP 116/53
[2021-11-28 04:00] VITALS: BP 160/67
[2021-11-28 06:39] LABS: CHOLESTEROL 169 mg/dL (<200); HDL CHOLESTEROL 52 mg/dL (>40); LDL CHOLESTEROL 93 mg/dL (<100); TC:HDL 3.3 Ratio (Not establshd); TRIGLYCERIDE 122 mg/dL (<150); VLDL 24 mg/dL (<40)
[2021-11-28 06:47] LABS: SERUM ASSESSMENT CL
[2021-11-28 08:12] VITALS: BP 144/70
--- NOTE | 2021-11-28 13:15 | EKG ---
[place] [address] ELECTROCARDIOGRAM REPORT Name: ADRIANANISSA Pia Room: [address] ADM IN M.R.#: [id number] Admission: 11/27/21 Attend Phys: Tommy Lambert Discharge: Date of : 51 Date of Service: 11/27/212111 Report #: [id number] THIS REPORT FOR: //name// [facility] Test Date: 2021-11-27 Test Time: 21:12:45 Pat Name: NISSA WRIGHT Department: Room: [address] Gender: F Supervisor Plastics: [id number] : 1955 Requested By: Tommy Lambert Order Number: [id number] Diya MD: Tk Lorenzana Measurements Intervals [place] Rate: 69 P: 44 CO: 178 QRS: -18 QRSD: 98 T: 33 QT: 412 QTc: 442 Interpretive Statements Sinus rhythm Left ventricular hypertrophy, by voltage Inferior infarct, old Compared to ECG 11/27/2021 14:25:24 No significant changes Electronically Signed On 11-28-2021 13:15:31 HAIR STYLIST by Tk Lorenzana [email or web address] <ELECTRONICALLY SIGNED> By: Tk Lorenzana MD, FACC 11/28/21 1315 11 11 Tk Lorenzana MD, FAC /EPI
--- NOTE | 2021-11-28 13:15 | EKG ---
[place] [address] ELECTROCARDIOGRAM REPORT Name: ADRIANANISSA Palacio Room: [address] ADM IN .R.#: [id number] Admission: 11/27/21 Attend Phys: Tommy Lambert Discharge: Date of : 51 Date of Service: 11/27/21 1425 Report #: [id number] THIS REPORT FOR: //name// [facility] ED Test Date: 2021-11-27 Test Time: 14:25:24 Pat Name: NISSA WRIGHT Department: Room: [facility] Gender: F Aircraft Powertrain Repairer: : 1955 Requested By: Julio Cesar Wright Order Number: [id number] MD: Tk Lorenzana Measurements Intervals [place] Rate: 70 P: 47 ID: 168 QRS: -16 QRSD: 97 T: 41 QT: 414 QTc: 447 Interpretive Statements Sinus rhythm Abnormal R-wave progression, late transition Left ventricular hypertrophy Inferior infarct, old Compared to ECG 09/13/2021 19:14:14 No significant changes Electronically Signed On 11-28-2021 13:14:50 IS TECHNICIAN by Tk Lorenzana [email or web address] <ELECTRONICALLY SIGNED> By: Tk Lorenzana MD, FACC 11/28/21 1314 1425 1425 Tk Lorenzana MD, FAC /EPI
[2021-11-28 13:19] VITALS: BP 149/64
[2021-11-28 16:00] VITALS: BP 160/73
[2021-11-28 20:00] VITALS: BP 165/73
[2021-11-29] VITALS: BP 126/52
[2021-11-29 04:37] VITALS: BP 106/46
[2021-11-29 05:04] LABS: HEMATOCRIT 34.1 % (37.0-47.0); HEMOGLOBIN 11.4 gm/dL (12.0-15.0); MCH 29.9 pg (26.0-34.0); MCHC 33.6 g/dL (28.0-37.0); MPV 6.6 fl. (7.2-11.1); RBC 3.82 mil/uL (4.20-5.00); WBC 7.6 thou/uL (4.0-11.0)
[2021-11-29 05:58] LABS: ALBUMIN 3.1 g/dL (3.4-5.0); CALCIUM 8.7 mg/dL (8.5-10.1); CREATININE 0.9 mg/dL (0.6-1.3); POTASSIUM 3.1 mmol/L (3.5-5.1); TOTAL BILIRUBIN 0.3 mg/dL (<0.1-1.0); TOTAL PROTEIN 6.2 g/dL (6.4-8.2)
[2021-11-29 08:00] VITALS: BP 146/59
--- NOTE | 2021-11-29 09:40 | EKG ---
[place] [address] ELECTROCARDIOGRAM REPORT Name: ADRIANANISAS Palacio Room: [address] ADM IN M.R.#: [id number] Admission: 11/27/21 Attend Phys: Tommy Lambert Discharge: Date of : 51 Date of Service: 11/27/212303 Report #: [id number] THIS REPORT FOR: //name// [facility] Test Date: 2021-11-27 Test Time: 23:04:26 Pat Name: NISSA WRIGHT Department: Room: [address] Gender: F Grain Scooper: [id number] : 1955 Requested By: Tommy Lambert Order Number: [id number] Reading MD: Tank Boo Measurements Intervals [place] Rate: 69 P: 41 DC: 183 QRS: -23 QRSD: 97 T: 44 QT: 413 QTc: 443 Interpretive Statements Sinus rhythm Left ventricular hypertrophy Inferior infarct, old Compared to ECG 11/27/2021 21:12:45 No significant changes Electronically Signed On 11-29-2021 9:40:37 CONVERTER OPERATOR by Tank Boo [email or web address] <ELECTRONICALLY SIGNED> By: Tank Boo MD, FAC 11/29/21 0940 [id number] [id number] Tank Boo MD, [facility] /EPI
[2021-11-29] MEDS ORDERED: LIPITOR 40 MG T40 M1 PO (09:49)
[2021-11-29] MEDS ORDERED: LISINOPRIL10 MG PO (09:49)
--- NOTE | 2021-11-29 11:57 | 2DMMODE ---
[place] [address] 2 D/M-MODE ECHOCARDIOGRAM Name: NISSA WRIGHT Pia Room: [address] IN [facility]#: [id number] Admission: 11/27/21 Attend Phys: Tommy Lambert Discharge: Date of : 51 Date of Service: 11/29/21 1157 Report #: [id number] THIS REPORT FOR: cc: Jakub Armijo Russell J. DO Blick,Tank Palomino MD [facility] ~ APPROVED REPORT Study performed: 11/29/2021 11:20:46 EXAM: Comprehensive 2D, Doppler, and color-flow Echocardiogram Patient Location: In-Patient Room #: [facility] Status: routine BSA: 1.73 HR: 60 bpm BP: 146/59 mmHg Rhythm: NSR Other Information Study Quality: Good Indications Chest Pain 2D Dimensions IVSd: 10.90 (7-11mm) LVOT Diam: 20.30 (18-24mm) LVDd: 46.27 mm PWd: 9.40 (7-11mm) Ascending Ao: 32.51 (22-36mm) LVDs: 22.26 (25-40mm) Aortic Root: 30.23 mm Volumes Left Atrial Volume (Systole) LA ESV Index: 28.70 mL/m2 Aortic Valve AoV Peak Mandeep.: 1.44 m/s AO Peak Gr.: 8.32 mmHg LVOT Max P.17 mmHg AO Mean Gr.: 4.08 mmHg LVOT Mean P.81 mmHg LVOT Max V: 1.02 m/s AO V2 VTI: 28.98 cm LVOT Mean V: 0.61 m/s JOSÉ MIGUEL (VTI): 2.74 cm2 LVOT V1 VTI: 24.53 [place] [address] 2 D/M-MODE ECHOCARDIOGRAM Name: NISSA WRIGHT Room: [address]#: [id number] Admission: 11/27/21 Attend Phys: Tommy Lambert Discharge: Date of : 51 Date of Service: 11/29/21 1157 Report #: [id number] Mitral Valve E/A Ratio: 0.69 MV Decel. Time: 275.57 ms MV E Max Mandeep.: 0.72 m/s MV PHT: 79.91 ms MVA (PHT): 2.75 cm2 TDI E/Lateral E': 12.00 E/Medial E': 8.00 Medial E' Mandeep.: 0.09 m/s Lateral E' Mandeep.: 0.06 m/s Pulmonary Valve PV Peak Mandeep.: 1.10 m/s PV Peak Gr.: 4.84 mmHg Tricuspid Valve RAP Estimate: 5.00 mmHg TR Peak Gr.: 34.13 mmHg RVSP: 39.00 mmHg PA Pressure: 39.00 mmHg Left Ventricle The left ventricle is normal size. There is normal LV segmental wall motion. There is normal left ventricular wall thickness. Left ventricular systolic function is normal. The left ventricular ejection fraction is within the normal range. LVEF is 60-65%. Grade I - abnormal relaxation pattern. Right Ventricle The right ventricle is normal size. The right ventricular systolic function is normal. Atria The left atrium size is normal. The right atrium size is normal. Aortic Valve The aortic valve is normal in structure. Trace aortic regurgitation. There is no aortic valvular stenosis. Mitral Valve The mitral valve is normal in structure. Trace mitral regurgitation. No evidence of mitral valve stenosis. Tricuspid Valve The tricuspid valve is normal in structure. Mild tricuspid regurgitation. estimated pa pressure 40 [place] [address] 2 D/M-MODE ECHOCARDIOGRAM Name: NISSA WRIGHT Room: [address]#: [id number] Admission: 11/27/21 Attend Phys: Tommy Lambert Discharge: Date of : 51 Date of Service: 11/29/21 1157 Report #: [id number] Pulmonic Valve The pulmonary valve is normal in structure. Trace pulmonic regurgitation. Great Vessels The aortic root is normal in size. IVC is normal in size and collapses >50% with inspiration. Pericardium There is no pericardial effusion. <Conclusion> LVEF is 60-65%. Trace aortic regurgitation. Trace mitral regurgitation. Mild tricuspid regurgitation. estimated pa pressure 40 mm Hg Trace pulmonic regurgitation. <ELECTRONICALLY SIGNED> By: Tank Boo MD, FACC 11/29/21 1157 1157 1157 Tank Boo MD, FACC /INF
--- NOTE | 2021-11-29 13:03 | NUR ---
Nutrition: Pt admitted with chest pain. Consult for wt loss. Per [facility], wt was 138# in 2018, 150# in 2020, now 138#. Alb 3.1. 2gm Na diet. Statin and BP meds changes. Negative stress test performed. Pt discharged to home. No nutrition interventions at this time. Mild risk.
[2021-11-29 13:37] VITALS: BP 174/75
--- NOTE | 2021-11-29 15:04 | NUR ---
CM ASSESSMENT: PT A&O, AND NORMALLY INDEPENDENT WITH ADL'S. PT RESIDES AT HOME WITH SPOUSE AND DTR. PT USES A ROLLATOR FOR MOBILITY. PT ALSO OWNS A HOVER ROUND AND WHEELCHAIR. PT HAS PAST HX OF HH. PT IS CURRENTLY ON-SERVICE WITH [facility]. PLAN FOR THE PT TO POSSIBLY D/C TODAY HOME WITH SELF-CARE PENDING STRESS TEST. NO OTHER CM D/C PLANNING NEEDS ANTICIPATED. CM WILL REMAIN AVAILABLE TO ASSIST AND FOLLOW NEEDED.
[2021-11-29 16:19] VITALS: BP 166/65
--- NOTE | 2021-11-29 18:56 | NUR ---
PT A&Ox4. STABLE. RA. UP STB. UNABLE TO COMPLETE STRESS TEST TODAY DUE TO PAIN AND NAUSEA. DEWAYNE INFORMED AND ORDERED MEDS BEFORE STRESS TEST TOMORROW TO HELP CALM HER. FALL PRECAUTIONS IN PLACE
[2021-11-29 20:00] VITALS: BP 166/71
[2021-11-30] VITALS: BP 98/47
[2021-11-30 04:00] VITALS: BP 100/50
[2021-11-30 08:00] VITALS: BP 146/77
--- NOTE | 2021-11-30 08:13 | CON ---
[address] [address] CONSULTATION Name: NISSA WRIGHT Room: [address] IN .R.#: [id number] Admission: 11/27/21 Attend Phys: Shira Mckenzie Discharge: Date of : 51 Report #: [id number] THIS REPORT FOR: cc: Jakub Armijo Russell J. DO Liston, Michael J. MD [facility] ~ cc: Jakub Armijo DO, John M. Holkins, MD [facility] DATE OF CONSULTATION: 11/28/2021 CARDIOLOGY CONSULT INDICATION: Chest pain. HISTORY OF PRESENT ILLNESS: The patient is a 66-year-old white female with history of mild nonocclusive atherosclerotic coronary artery disease based on catheterization in 2015. The patient is admitted to the hospital with complaints of chest pain beginning in the right upper chest radiating to the back and right arm. The pain was associated with shortness of breath and lasted several hours. The pain woke her from sleep yesterday at 4:00 in the morning and persisted until approximately 1:00 in the afternoon. EKG shows sinus rhythm without acute ST abnormality. Troponins are unremarkable. At this time, the patient is without pain. Pain was somewhat exacerbated with deep inspiration, but not activity or other activities. The patient has a long history of orthostatic hypotension that has been relatively stable. PAST MEDICAL HISTORY: 1. Mild atherosclerotic coronary artery disease based on catheterization in 2015. 2. Hypertension. 3. Hypercholesterolemia. 4. Rheumatoid arthritis. 5. Muscular dystrophy with Yxbovpj-Mnvzn-Fdifi. 6. Degenerative disk disease. 7. Osteoporosis. 8. Anxiety and depression. ALLERGIES: AMITRIPTYLINE, CODEINE AND GABAPENTIN. HOME MEDICATIONS: Xanax 0.25 mg p.o. b.i.d., Norvasc 5 mg daily, aspirin 81 mg daily, atenolol 25 mg daily, benazepril 10 mg b.i.d., Omnicef 300 mg b.i.d., Celebrex 200 mg daily, Cymbalta 60 mg daily, Pepcid 40 mg at bedtime, Lasix 20 mg p.o. daily, Lorcet 5/325 mg 1 tablet q. 4 hours p.r.n., Coeymans 10/325 one tablet q. 8 hours p.r.n., Synthroid 0.112 mg p.o. daily, multivitamin 1 tablet daily, omeprazole 20 mg daily, Zofran 4 mg p.r.n., potassium 20 mEq daily, [place] [address] CONSULTATION Name: NISSA WRIGHT Room: [address] IN M.R.#: [id number] Admission: 11/27/21 Attend Phys: Shira Mckenzie Discharge: Date of : 51 Report #: [id number] pravastatin 20 mg daily, Zanaflex 4 mg b.i.d., trazodone 150 mg at bedtime. FAMILY HISTORY: Noncontributory. SOCIAL HISTORY: The patient does not smoke. She does not drink alcohol. REVIEW OF SYSTEMS: As per HPI, otherwise unremarkable. PHYSICAL EXAMINATION: VITAL SIGNS: Stable. Blood pressure 144/70, pulse 77 and regular. GENERAL: This is a pleasant elderly female in no distress. Mood and affect appropriate. HEENT: Extraocular muscles intact. Mucous membranes are moist. NECK: Shows no jugular venous distention. CHEST: Reveals clear lung cox without wheezes or rales. CARDIAC: Reveals a regular rhythm without gallop or murmur. ABDOMEN: Reveals normal bowel sounds. The abdomen is soft and nontender. EXTREMITIES: Show no edema. DIAGNOSTIC DATA: A 12-lead EKG shows sinus rhythm without acute ST or T-wave abnormality. LABORATORY DATA: Reviewed. Sodium 145, potassium 3.4, chloride 105, bicarbonate 33, BUN 20, creatinine 1.0, serum glucose 101. LFTs are within normal limits. High sensitivity troponin sequentially 6, 7, 7, 7, 7. NT-proBNP 78. LDL cholesterol 93. White blood cell count 6.6, hemoglobin 11.7, MCV 90.1, platelet count 198,000. Chest x-ray shows mild cardiomegaly without acute cardiopulmonary abnormality. IMPRESSION AND RECOMMENDATIONS: 1. Chest pain. Prolonged in duration with negative enzymes, doubt cardiac. We will follow up with stress testing to further evaluate underlying coronary artery disease. Also ordering abdominal ultrasound to evaluate gallbladder. 2. Coronary artery disease. Recommend daily aspirin and risk factor modification. 3. Hypercholesterolemia. LDL slightly elevated above goal. We will switch to atorvastatin. 4. Hypertension. Blood pressure adequately controlled. 5. Orthostatic hypotension, presently stable. <ELECTRONICALLY SIGNED> By: Tk Lorenzana MD, FACC 11/30/21 0813 1021 [id number] Lorenzana MD, FACC /nt
[2021-11-30 11:41] VITALS: BP 138/60
--- NOTE | 2021-11-30 11:49 | CARDNUC ---
[place] [address] CARDIAC NUCLEAR IMAGING REPORT Name: NISSA WRIGHT Pia Room: [address] IN [facility]#: [id number] Admission: 11/27/21 Attend Phys: Tommy Lambert Discharge: Date of : 51 Date of Service: 11/30/21 1149 Report #: [id number] THIS REPORT FOR: cc: Jakub Armijo Russell J. DO Liston, Michael J. MD [facility] ~ APPROVED REPORT Study performed: 11/30/2021 09:43:48 Exam: Nuclear Stress Test Indication: Chest pain Patient Location: Out-Patient Stress Nurse: Bradni Ramirez RN Ht: 5 ft 5 in Wt: 138 lbs BSA: 1.69 m2 BMI: 22.96 Medical History Medications: amlodipine, asa, aenolol, furosemied, lisinopril, kcl, atorvastatin Allergies: multiple Cardiac Risk Factors: Age Exercise History: Sedentary Meds Held (24 hrs): atenolol Stress Test Details Stress Test: Pharmacologic stress testing performed using 0.4 mg of regadenoson per 5 mL given IV over 10 seconds. Reason for pharmacologic stress test: physical limitation. HR Resting HR: 73 bpm Max Heart Rate (APMHR): 152 bpm Max HR Achieved: 94 bpm Target HR (85% APMHR): 129 bpm % of APMHR: 61 Recovery HR: 77 bpm BP Resting BP: 120/87 mmHg Max BP: 111/75 mmHg ECG Resting ECG: Sinus rhythm with nonspecific ST segment and T wave abnormality [address] [address] CARDIAC NUCLEAR IMAGING REPORT Name: WRIGHTNISSA S Room: [address]#: [id number] Admission: 11/27/21 Attend Phys: Tommy Lambert Discharge: Date of : 51 Date of Service: 11/30/21 1149 Report #: [id number] Stress ECG: Sinus rhythm with nonspecific ST segment and T wave abnormality ST Change: None Arrhythmia: None Recovery ECG: Sinus rhythm with nonspecific ST segment and T wave abnormality Recovery ST Change: None Recovery Arrhythmia: None Clinical Reason for Termination: Completed protocol The patient had mild nausea with Lexiscan infusion but no other cardiac symptoms. Nurse Comments pt received 4 mg zofran and 60 mg caffeine ivp for nausea Stress ECG Conclusion Baseline twelve-lead EKG shows sinus rhythm with diffuse nonspecific ST segment depression and T wave inversion. EKGs obtained during and post Lexiscan infusion show sinus rhythm with no significant ST or T wave changes when compared to the baseline EKG. There were no stress-induced arrhythmias. NM EXAM: Myocardial Perfusion REST/STRESS Resting Data Rest SPECT myocardial perfusion imaging was performed in supine position 60 minutes following the intravenous injection of 10.5 mCi of Tc-99m Sestamibi. Time of rest injection: 08:05 The images were gated to evaluate regional wall motion and calculate left ventricular ejection fraction. Administration Route: IV Administration Site: Left Hand Pharmacologic Stress Pharmacologic stress test was performed by injecting Regadenoson 0.4 mg IV push followed by the intravenous injection of 32.5 mCi of Tc-99m Sestamibi. Time of stress injection: 09:40 Administration Route: IV Administration Site: Left Hand Heart Rate at time of stress injection: 94 bpm. Gated Stress SPECT was performed 45 minutes [place] [address] CARDIAC NUCLEAR IMAGING REPORT Name: NISSA WRIGHT Room: [address]#: [id number] Admission: 11/27/21 Attend Phys: Tommy Lambert Discharge: Date of : 51 Date of Service: 11/30/21 1149 Report #: [id number] The images were gated to evaluate regional wall motion and calculate left ventricular ejection fraction. Study Quality Study: Good Artifact: No artifact Study Data At rest, the left ventricular ejection fraction was 71%.. Post stress, the left ventricular ejection was 78%.. TID = 1.07. Perfusion Perfusion images obtained at rest and post Lexiscan stress showed uniform uptake of the radioisotope throughout the myocardium. There were no defects to suggest infarct or ischemia. Wall Motion Normal left ventricular wall motion. Nuclear Conclusion ECG Findings: non-diagnostic Clinical Findings: negative for ischemia Nuclear Findings: negative for ischemia Exercise Capacity: not assessed Left Ventricular Function: normal Risk Study: low Perfusion images show no defect to suggest infarct or ischemia. Left ventricular systolic function appears normal on gated studies. This is a low risk study. <Conclusion> Baseline twelve-lead EKG shows sinus rhythm with diffuse nonspecific ST segment depression and T wave inversion. EKGs obtained during and post Lexiscan infusion show sinus rhythm with no significant ST or T wave changes when compared to the baseline EKG. There were no stress-induced arrhythmias. <ELECTRONICALLY SIGNED> By: Tk Lorenzana MD, FACC 11/30/21 1149 1149 1149 Tk Lorenzana MD, FACC /INF
[2021-11-30 12:30] VITALS: BP 138/60
--- NOTE | 2021-11-30 14:35 | NUR ---
ASSUMED PT CARE AT 0730, PT AOX4, WORKED W/ CARDIOLOGY AND WENT DOWN FOR STRESS TEST AFTER RECEIVING A DOSE OF VALIUM, TOLERATED WELL AND STRESS TEST CAME BACK NEGATIVE. PT DC'D BY DR RHONDA IV AND INSPECTOR FINAL ASSEMBLY CONVEYOR LINE REMOVED. PT DC'D BY W/ NURSING STAFF AND ALL PAPERWORK AND PERSONAL BELONGINGS TO 'S VEHICLE AT APPROX 1350.
--- NOTE | 2021-11-30 15:53 | NUR ---
PLAN FOR THE PT TO D/C HOME TODAY WITH SELF-CARE. NO CM D/C PLANNING NEEDS ANTICIPATED. CM WILL REMAIN AVAILABLE TO ASSIST AND FOLLOW NEEDED.
== END 2021-11-30 13:50 | disposition home or self-care (01) | DRG 303 ==
LOC: M.ERS 14:22 → M.2W 17:34 → M.TBA-ER 17:34 → M.2W 18:47
PROVIDERS: Emergency Medicine Emergency Medical Services; Internal Medicine; ADMIT Internal Medicine; ATTEND Internal Medicine
DX: I25.119 Atherosclerotic heart disease of native coronary artery with unspecified angina pectoris (principal); M06.9 Rheumatoid arthritis, unspecified; I10 Essential (primary) hypertension; M81.0 Age-related osteoporosis without current pathological fracture; E78.5 Hyperlipidemia, unspecified; F32.9 Major depressive disorder, single episode, unspecified; E78.00 Pure hypercholesterolemia, unspecified; F41.9 Anxiety disorder, unspecified; I25.10 Atherosclerotic heart disease of native coronary artery without angina pectoris; I95.1 Orthostatic hypotension; F12.90 Cannabis use, unspecified, uncomplicated; G89.29 Other chronic pain; M54.9 Dorsalgia, unspecified; Z20.822 Contact with and (suspected) exposure to COVID-19; Z90.710 Acquired absence of both cervix and uterus; Z88.6 Allergy status to analgesic agent; Z88.8 Allergy status to other drugs, medicaments and biological substances